=== PATIENT | male | born 1975 | race Caucasian/White ===

== ENCOUNTER → 2016-12-31 08:27 | Outpatient (CLI) | payer MEDICAID | END | disposition home or self-care (01) | LOC: D.RT 08:00 | DX: R06.00 Dyspnea, unspecified (principal) ==

== ENCOUNTER 2018-03-19 08:24 | Day surgery (SDC) | payer MEDICAID ==
[~2018-03-19] VITALS: Ht 188 cm; Wt 122.5 kg
--- NOTE | ~2018-03-19 | OP ---
PATIENT NAME: SHELBY HSU MEDICAL RECORD: [id number] :79 LOCATION:D.OPS ADMISSION DATE: SURGEON: MARIUSZ GANDARA MD DATE OF OPERATION: 03/19/2018 SURGEON: Mariusz Gandara MD PREOPERATIVE DIAGNOSES: 1. Muscle weakness. 2. Increased creatine kinase level. POSTOPERATIVE DIAGNOSES: 1. Muscle weakness. 2. Increased creatine kinase level. PROCEDURE PERFORMED: Incisional biopsy of left biceps muscle. ANESTHESIA: General. COMPLICATIONS: None. SPECIMENS: Left bicep muscle. Case was clean. OPERATIVE COURSE: After consent was obtained, the patient was taken to the operating room and placed in supine position on the operating table. Timeout was taken to confirm the correct patient and procedure. Monitored anesthesia was provided. The left arm was prepped and draped in typical sterile fashion. A 20 cc local anesthetic was administered. Linear incision was made with 10 blade scalpel. Dissection continued to the subcutaneous tissue to the biceps fascia using electrocautery. The biceps fascia was opened with a 15 blade scalpel. A 2 cm segment biceps muscle was identified. Two silk sutures were placed at each end. The specimen was transected using Metzenbaum scissors. The specimen was sent for permanent pathology. The wound was irrigated and suctioned. The biceps tendon fascia was closed using 3-0 Vicryl suture. The subcutaneous tissue was reapproximated using 3-0 Vicryl suture. The skin was closed with 4-0 Monocryl, Mastisol and Steri-Strips. At the end of the case, all needle and instrument counts were correct. No complications occurred. The patient was transferred to the recovery room in satisfactory condition. TRANSINT:[id number] Voice Confirmation ID: [id number] DOCUMENT ID: [id number] MARIUSZ GANDARA MD at 1226 CC: [id number] DICTATION DATE: 03/19/18 1156 [employer] MECH[employer]IC: 03/19/18 [address] [place] [address]
[~2018-03-19 08:24] MED LIST: BREO ELLIPTA 11 EACH INH; REQUIP0.5 MG PO
[2018-03-19 10:29] VITALS: BP 115/72; Ht 188 cm; Wt 122.5 kg
[2018-03-19] MEDS ORDERED: ULTRAM50 MG PO (11:51)
== END 2018-03-19 13:00 | disposition home or self-care (01) ==
LOC: D.OPS 08:24 → D.PAN 11:00 → D.OPS 13:00
DX: M62.81 Muscle weakness (generalized) (principal); R94.4 Abnormal results of kidney function studies; Z01.812 Encounter for preprocedural laboratory examination